=== PATIENT | female | born 1985 | race Caucasian/White ===

== ENCOUNTER 2018-02-14 17:17 | Emergency (ER) | payer MEDICAID, OTHER ==
[~2018-02-14] VITALS: Ht 172.7 cm; Wt 74.7 kg
[2018-02-14 17:23] VITALS: BP 104/71
[2018-02-14 17:47] LABS: URINE HCG NEGATIVE (NEG)
[2018-02-14 17:51] LABS: CLARITY,URINE CLOUDY (Clear); COLOR,URINE YELLOW (Yellow); GLUCOSE, URINE NEGATIVE (Neg); KETONES,URINE NEGATIVE (Neg); LEUKOCYTE ESTERASE ,URINE MODERATE (Neg); NITRITES, URINE POSITIVE (Neg); OCCULT BLOOD,URINE MODERATE (Neg); PROTEIN,URINE NEGATIVE (Neg); UROBILINOGEN,URINE 0.2 E.U/dL (0.2-1.0)
[2018-02-14 17:53] LABS: UA COLLECTION TYPE CLN CATCH MIDSTREAM
[2018-02-14] MEDS ORDERED: PHEN-873 PO (18:05)
[2018-02-14 18:10] LABS: BACTERIA,URINE 3+ /HPF (Neg); MUCUS STRANDS FEW /LPF (Neg); RBC,URINE 0-2 /HPF (0-2); SQUAMOUS EPITHELIAL CELL,UR FEW /LPF (FEW); WBC CLUMPS,URINE MANY /HPF (NEGATIVE); WBC,URINE 30-50 /HPF (0-4)
[2018-02-14] MEDS ORDERED: CEPH500C5 PO (18:27)
== END 2018-02-14 18:44 | disposition home or self-care (01) ==
LOC: ER 17:19
DX: N39.0 Urinary tract infection, site not specified (principal)
CPT/HCPCS: 81001; 81025; 87077; 87088; 87186; 99284

== ENCOUNTER 2022-11-16 15:46 | Emergency (ER) | payer MEDICAID, OTHER ==
[~2022-11-16] VITALS: Ht 172.7 cm; Wt 88.6 kg
[~2022-11-16 15:46] MED LIST: PHEN-786 PO
[2022-11-16 16:13] VITALS: BP 116/78
[2022-11-16] MEDS ORDERED: bacitracin 15gm ointment TP ONE (17:30)
[2022-11-16] MEDS ORDERED: CEPH-585 PO (17:38)
== END 2022-11-16 17:49 | disposition home or self-care (01) ==
LOC: ER 15:48
DX: S91.312A Laceration without foreign body, left foot, initial encounter (principal); Z79.899 Other long term (current) drug therapy; W26.8XXA Contact with other sharp object(s), not elsewhere classified, initial encounter; Y93.89 Activity, other specified; Y92.89 Other specified places as the place of occurrence of the external cause; Y99.8 Other external cause status
CPT/HCPCS: 73610; 99283